=== PATIENT | female | born 1970 | race Caucasian/White ===

== ENCOUNTER 2024-12-18 12:26 | Emergency (ER) | payer OTHER, SELFPAY ==
[2024-12-18] VITALS (17 sets, daily range): BP systolic 108–165; BP diastolic 68–97; PULSE 82–91; BMI 22.5
[2024-12-18 13:03] LABS: % Basophils 0.4 % (0-2); % Immature Granulocytes 0.4 % (0-0.5); % Lymphocytes 20.4 % (20.5-51.1); % Monocytes 3.5 % (1.7-9.3); % Neutrophils 75.3 % (42.2-75.2); Absolute Lymphocytes 2.1 10^3/uL (1.2-3.4); Absolute Monocytes 0.4 10^3/uL (0.1-0.6); Absolute Neutrophils 7.8 10^3/uL (1.4-6.5); Hematocrit 41.7 % (37.0-47.0); Hemoglobin 14.1 g/dL (12.0-16.0); Mean Corp Hgb Conc. 33.8 g/dL (33.0-37.0); Mean Corpuscular Hgb 27.2 pg (27.0-31.0); Mean Corpuscular Volume 80.5 fL (81.0-99.0); Mean Platelet Volume 10.3 fL (7.4-10.4); Nucleated Red Blood Cells % 0 %; Platelet Count 270 10^3/uL (130-400); Red Blood Cell Count 5.18 10^6/uL (4.20-5.40); Red Cell Dist. Width 13.8 % (11.5-14.5); White Blood Cell Count 10.4 10^3/uL (4.8-10.8)
[2024-12-18 13:41] LABS: ALT (SGPT) 21 U/L (0-35); AST (SGOT) 24 U/L (14-36); Albumin 4.5 g/dl (3.5-5.0); Alkaline Phosphatase 149 U/L (38-126); Blood Urea Nitrogen 13 mg/dl (7-17); Carbon Dioxide 25 mmol/L (22-30); Chloride 105 mmol/L (98-107); Estimated Creatinine Clearance 85 ml/min; Glucose 153 mg/dl (70-99); Potassium 4.3 mmol/L (3.5-5.1); Sodium 140 mmol/L (135-145); Total Bilirubin 0.9 mg/dl (0.2-1.3); Total Protein 8.3 g/dl (6.3-8.2); eGFR > 60.00
[2024-12-18] MEDS: ANTIVERT 25 MG PO (14:03)
--- NOTE | 2024-12-18 15:10 | ED.GENMED ---
History of Present Illness
<Dony Shne PA-C - Last Filed: 12/21/24 06:12>
General
Chief Complaint: Dizziness
Time Seen by Provider: 12/18/24 13:14
History of Present Illness
History of Present Illness:
54-year-old female with history of hypertension presents to the emergency department for evaluation of abrupt onset of dizziness that began this morning. States she woke up and felt profound vertigo, symptoms seem to deven whenever she is motion
less however returned with any degree of head movement. As the symptoms progressed she developed vomiting. She does note that she was treated last week for strep pharyngitis and completed antibiotics 2 days ago. Denies headache, vision changes,
speech changes, chest pain, or shortness of breath
Past History
<Dony Shen PA-C - Last Filed: 12/21/24 06:12>
Past History
ED Past Medical History: HTN
ED Past Surgical History:
Social History
Tobacco: Former smoker
Alcohol: None
Drug: None
Personal:
Living: with family
Employment: Employed
Family History
Family History: Hypertension
Review of Systems
<SADIE Holliday Last Filed: 12/21/24 06:12>
Review of Systems
Allergies reviewed?: Yes
All Other Systems: ROS reviewed and negative except as documented in HPI and ROS
Phy Exam
<Dony Shen PA-C - Last Filed: 12/21/24 06:12>
Physical Exam
Physical Exam:
GEN: Well appearing, NAD, WDWN
HEENT: Oral mucosa moist, no scleral icterus, no nasal congestion
Cardiac: Regular rate
Lung: No respiratory distress, no tachypnea
MSK: No gross deformity or injuries
Skin: Good color, no pallor or jaundice, no rashes
Neuro: AO x3; CN II-XII grossly intact. BUE strength 5/5 in all mason, sensation intact and symmetric. BLE strength 5/5 in all mason, sensation intact and symmetric. Unable to provoke nystagmus with Demian maneuver
Psych: Calm, cooperative
Course
<Dony Shen PA-C - Last Filed: 12/21/24 06:12>
Orders/Labs/Results
Orders:
Orders
12/18/24 12:29
ECG [Electrocardiogram (*1)] Urgent
Reason for Study: Vertigo / Dizzy
EKG- Treatment ONCE
12/18/24 12:53
Complete Blood Count/With Diff Urgent
12/18/24 13:21
Comprehensive Metabolic Panel Urgent
12/18/24 13:52
Meclizine [Antivert] 25 mg PO NOW STA
12/18/24 15:00
Pt Eval And Treat Urgent
Treatment: BPPV
Activity Level: As Tolerated
12/18/24 15:58
Troponin I Urgent
12/18/24 17:07
CT Head W/o Iv Contrast Urgent
Comment:
Reason For Exam: dizziness
12/18/24 17:36
Electrocardiogram (*1) Urgent
Reason for Study: Vertigo / Dizzy
EKG- Treatment ONCE
12/18/24 18:30
Troponin I Urgent
Abnormal Lab Results
12/18/24 12/18/24
12:53 13:21
MCV 80.5 L fL
(81.0-99.0)
Absolute Neuts (auto) 7.8 H 10^3/uL
(1.4-6.5)
Neutrophils % 75.3 H %
(42.2-75.2)
Lymphocytes % 20.4 L %
(20.5-51.1)
Glucose 153 H mg/dl
(70-99)
Alkaline Phosphatase 149 H U/L
(38-126)
Total Protein 8.3 H g/dl
(6.3-8.2)
12/18/24 12:53
12/18/24 13:21
Vital Signs
Initial and Last Documented VS:
Initial Vital Signs
Temp Pulse Resp BP Pulse Ox
98.3 F 104 16 108/68 98
12/18/24 12:30 12/18/24 12:30 12/18/24 12:30 12/18/24 12:30 12/18/24 12:30
Last Documented Vital Signs
Temp Pulse Resp BP Pulse Ox
97.6 F 86 16 165/84 97
12/18/24 13:13 12/18/24 20:06 12/18/24 20:06 12/18/24 20:06 12/18/24 20:06
<Gwen Antunez PA-C - Last Filed: 12/18/24 21:07>
Orders/Labs/Results
Orders:
Orders
12/18/24 12:29
ECG [Electrocardiogram (*1)] Urgent
Reason for Study: Vertigo / Dizzy
EKG- Treatment ONCE
12/18/24 12:53
Complete Blood Count/With Diff Urgent
12/18/24 13:21
Comprehensive Metabolic Panel Urgent
12/18/24 13:52
Meclizine [Antivert] 25 mg PO NOW STA
12/18/24 15:00
Pt Eval And Treat Urgent
Treatment: BPPV
Activity Level: As Tolerated
12/18/24 15:58
Troponin I Urgent
12/18/24 17:07
CT Head W/o Iv Contrast Urgent
Comment:
Reason For Exam: dizziness
12/18/24 17:36
Electrocardiogram (*1) Urgent
Reason for Study: Vertigo / Dizzy
EKG- Treatment ONCE
12/18/24 18:30
Troponin I Urgent
Abnormal Lab Results
12/18/24 12/18/24
12:53 13:21
MCV 80.5 L fL
(81.0-99.0)
Absolute Neuts (auto) 7.8 H 10^3/uL
(1.4-6.5)
Neutrophils % 75.3 H %
(42.2-75.2)
Lymphocytes % 20.4 L %
(20.5-51.1)
Glucose 153 H mg/dl
(70-99)
Alkaline Phosphatase 149 H U/L
(38-126)
Total Protein 8.3 H g/dl
(6.3-8.2)
12/18/24 12:53
12/18/24 13:21
Vital Signs
Initial and Last Documented VS:
Initial Vital Signs
Temp Pulse Resp BP Pulse Ox
98.3 F 104 16 108/68 98
12/18/24 12:30 12/18/24 12:30 12/18/24 12:30 12/18/24 12:30 12/18/24 12:30
Last Documented Vital Signs
Temp Pulse Resp BP Pulse Ox
97.6 F 86 16 165/84 97
12/18/24 13:13 12/18/24 20:06 12/18/24 20:06 12/18/24 20:06 12/18/24 20:06
<Dony Shen PA-C - Last Filed: 12/21/24 06:12>
MDM/Problems Addressed
MDM/Problems Addressed:
54-year-old female presenting with acute onset of dizziness beginning this morning. She has clearly positional vertigo but no evidence of persistent vertigo. She is able to ambulate under her own power. PT evaluation pending. Troponin was sent
due to abnormal EKG with diffuse ST depressions however patient has no chest pain or cardiac symptoms at this point. Signed out to Gwen Antunez PA-C pending PT eval
<Gwen Antunez PA-C - Last Filed: 12/18/24 21:07>
*Critical Care Note
Total Time (30-74mins, 75-104mins- exclusive of procedures): Not Applicable
<Gwen Antunez PA-C - Last Filed: 12/18/24 21:07>
Update Note
Update Note:
I received patient in signout awaiting PT evaluation and troponin results. Troponin is within normal limits. Patient was evaluated by physical therapy and did test positive for left-sided BPPV. PT is recommending outpatient vestibular therapy.
She was able to ambulate independently during her PT assessment. On reassessment, patient states she feels 'weird in the head.' She denies any recurrent vertiginous symptoms but still feels nauseous. Repeat neuro exam again shows no nystagmus or
ataxia. CT head added which ultimately came back negative for acute findings. EKG was sent in triage which does show ST depressions in inferolateral leads. No CP/SOB reported. I discussed EKG with Dr. Holder, on-call wind energy project manager. Dr. Holder
states EKG findings may be related to her vertigo presentation and recommends repeat EKG and troponin testing and discharging if unchanged/improving. Repeat EKG looks markedly improved and second troponin also came back normal. No indication for
hospitalization at this time and patient feels comfortable with discharge. Prescriptions provided for Zofran and meclizine. Advised to follow-up with PCP and vestibular therapy. Strict ED return precautions discussed. She was discharged in
stable condition.
ED Attending Note
<Dony Shen PA-C - Last Filed: 12/21/24 06:12>
-
Portions of this chart may have been created with voice recognition software.� Occasional wrong word or��sound alike� substitutions may have occurred due to the inherent limitations of voice recognition software.
Discharge Plan
Departure
Patient Disposition: Home (Routine Discharge)
Date of Disposition: 12/18/24
Time of Disposition: 19:33
Patient with high blood pressure during this ER visit?: Yes
Discharge Problem:
Vertigo
Instructions: Vertigo (a type of dizziness)
Prescriptions:
New
meclizine 25 mg tablet
25 mg PO QID PRN (Reason: dizziness) Qty: 20 0RF
ondansetron 4 mg tablet,disintegrating
4 mg PO Q6H PRN (Reason: nausea and vomiting) Qty: 20 0RF
No Action
lisinopril 5 MG tablet
5 mg PO DAILY
Referrals:
Bruce Trejo, [Family Provider] -
Activity Restrictions/Additional Instructions:
Take meclizine as needed for dizziness. Take Zofran as needed for nausea.
Please follow-up with your family doctor on Saturday. You should also schedule a follow-up appointment with vestibular therapy.
Return to the ER with any new or worsening symptoms.
Interventions
Interventions:
*Risk Screen - Suicide Last Done: 12/18/24 12:30
*General Assessment Last Done: 12/18/24 13:13
*Neglect/Abuse Screening Last Done: 12/18/24 12:30
*ED- Fall Risk Assessment Last Done: 12/18/24 13:13
*ED COVID-19 Vaccine History Last Done: 12/18/24 13:13
*Nursing Disposition Last Done: 12/18/24 20:10
ED- Neurological Assessment Last Done: 12/18/24 13:13
ED- Cardiac Assessment Last Done: 12/18/24 13:13
ED Swallowing Screen Last Done: 12/18/24 13:13
Discharge Date and Time
Discharge Date/Time: 12/18/24 20:15
Print Language: SYRIAC
--- NOTE | 2024-12-18 16:00 | EDRN ---
physical therapy currently at the pts bedside
[2024-12-18 16:31] LABS: Troponin I < 0.012 ng/ml
[2024-12-18 19:12] LABS: Troponin I < 0.012 ng/ml
== END 2024-12-18 20:15 | disposition home or self-care (01) ==
LOC: EMR 12:26
PROVIDERS: Emergency Medicine; Physician Assistant; EMERGENCY PHYSICIAN Emergency Medicine; FAMILY PHYSICIAN Family Medicine
DX: R42 Dizziness and giddiness (principal); I10 Essential (primary) hypertension; Z82.49 Family history of ischemic heart disease and other diseases of the circulatory system; Z87.891 Personal history of nicotine dependence
CPT/HCPCS: 99284; 70450; 80053; 84484; 85025; 93005

== ENCOUNTER 2025-01-05 18:28 | Outpatient (RCR) | payer OTHER, SELFPAY | END 2025-01-05 23:59 | disposition home or self-care (01) | LOC: RPT 18:28 | PROVIDERS: ATTENDING PHYSICIAN Family Medicine | DX: H81.10 Benign paroxysmal vertigo, unspecified ear (principal); Z73.6 Limitation of activities due to disability | CPT/HCPCS: 95992; 97112; 97161 ==

== ENCOUNTER → 2025-01-06 10:58 | Outpatient (REF) | payer OTHER, SELFPAY | LOC: HWRAD 10:58 | PROVIDERS: ATTENDING PHYSICIAN Physician Assistant Medical; FAMILY PHYSICIAN Family Medicine | DX: R10.11 Right upper quadrant pain (principal); R22.1 Localized swelling, mass and lump, neck; R07.81 Pleurodynia | CPT/HCPCS: 71101; 76536; 76700 ==

== ENCOUNTER 2025-01-21 18:23 | Outpatient (RCR) | payer OTHER, SELFPAY | END 2025-01-21 23:59 | disposition home or self-care (01) | LOC: RPT 18:23 | PROVIDERS: ATTENDING PHYSICIAN Family Medicine | DX: H81.10 Benign paroxysmal vertigo, unspecified ear (principal); Z73.6 Limitation of activities due to disability | CPT/HCPCS: 97112 ==

== ENCOUNTER → 2025-04-14 18:32 | Outpatient (REF) | payer OTHER, SELFPAY | LOC: MRI 3T 18:32 | PROVIDERS: ATTENDING PHYSICIAN Family Medicine | DX: R51.9 Headache, unspecified (principal) | CPT/HCPCS: 70553; A9575 ==